=== PATIENT | female | born 1955 | race African-American/Black ===

== ENCOUNTER 2023-10-14 10:29 | Emergency (ER) | payer OTHER ==
[2023-10-14 11:52] LABS: Bilirubin Neg (Negative); Blood, Urine 10 (Negative); Clarity Clear (Clear); Glucose, Urine (Dipstick) Normal (Negative); Ketone, Urine Negative (Negative); Leukocyte Negative (Negative); Nitrite Negative (Negative); Protein, Urine (Dipstick) Negative (Neg-Trace); Specific Gravity, Urine 1.005 (1.005-1.030); Urobilinogen Normal mg/dL (Less than 2)
[2023-10-14] MEDS ORDERED: traMADol HCl 50 MG TAB ONE (12:01)
[2023-10-14 12:31] LABS: Bacteria/HPF None Seen HPF (None Seen); CAUTI Indications for Culture Pelvic or flank pain; RBC/HPF 0-3 HPF (0-3); Renal Epithelial 0-3 HPF (None Seen); WBC/HPF None Seen HPF (0-3)
[2023-10-14 12:32] LABS: Urine Culture Reflex No No
== END 2023-10-14 13:08 | disposition home or self-care (01) ==
LOC: CSHERS 10:29
DX: M54.50 Low back pain, unspecified (principal); E78.5 Hyperlipidemia, unspecified; I10 Essential (primary) hypertension; C34.90 Malignant neoplasm of unspecified part of unspecified bronchus or lung; M81.0 Age-related osteoporosis without current pathological fracture; F17.210 Nicotine dependence, cigarettes, uncomplicated
CPT/HCPCS: 72131; 81001